=== PATIENT | female | born 1960 | race Caucasian/White ===

== ENCOUNTER 2016-07-10 09:46 | Emergency (ER) | payer OTHER, MEDICAID ==
[2016-07-10 09:55] VITALS: BMI 20.5
[2016-07-10 09:56] VITALS: TEMP 97.8
--- NOTE | 2016-07-10 09:56 | EDPRACDOC ---
- General Stated Complaint: FALL Time Seen by Provider: 07/10/16 09:53 Information Source: Patient, Human Resources Clerk Exam Limitations: No Limitations - History of Present Illness Onset: COMMUNITY AFFAIRS DIRECTOR HPI: PT FELL OUT OF BED. C/O SEVERE RIGHT THIGH PAIN. PT HAS BOTH HIPS DISARTICULATED. PAIN ALSO RIGHT KNEE. PAIN 10/. NO OTHER COMPLAINTS. PT MEDICATED HERSELF WITH HOME [facility] COMMUNITY AFFAIRS DIRECTOR. Allergies/Adverse Reactions: Allergies azithromycin Allergy (Unknown, Verified 04/21/16 14:33) Unknown/See Comments PATIENTS FAMILY REPORTS ALLERGIC TO AZITHROMYCIN clarithromycin [From Biaxin] Allergy (Unknown, Verified 04/21/16 14:33) Unknown/See Comments PATIENT'S FAMILY REPORTS ALLERGIC TO BIAXIN fexofenadine HCl [From Daisy] Allergy (Unknown, Verified 04/21/16 14:33) Unknown/See Comments PATIENT'S FAMILY REPORT ALLERGIC TO DAISY hydromorphone HCl [From Dilaudid] Allergy (Unknown, Verified 04/21/16 14:33) Unknown/See Comments Patient reports unable to take the pill form of Dilaudid, but can have it administered through an IV or a shot. Patient does not know reaction to medication by mouth, states her body does not do well with it. morphine Allergy (Unknown, Verified 04/21/16 14:33) Unknown/See Comments PATIENT'S ALLERGIC TO MORPHINE Penicillins Allergy (Unknown, Verified 04/21/16 14:33) Unknown/See Comments PATIENTS FAMILY REPORTS ALLERGIC TO PCN prednisone [Prednisone] Allergy (Unknown, Verified 04/21/16 14:33) Unknown/See Comments PATIENT'S FAMILY REPORTS ALLERGIC TO PREDNISONE Sulfa (Sulfonamide Antibiotics) Allergy (Unknown, Verified 04/21/16 14:33) Unknown/See Comments PATIENT'S FAMILY REPORTS ALLERGIC TO SULFA tolterodine tartrate [From Detrol] Allergy (Unknown, Verified 04/21/16 14:33) Unknown/See Comments PATIENT'S FAMILY REPORTS ALLERGIC TO DETROL tramadol Allergy (Unknown, Verified 04/21/16 14:33) Unknown/See Comments PATIENT'S FAMILY REPORTS ALLERGICE TO TRAMADOL Home Medications: Ambulatory Orders Duloxetine [Cymbalta] 60 mg PO BID 01/26/14 Estradiol [Estrace] 1 mg PO DAILY 01/26/14 Pregabalin [Lyrica] 150 mg PO TID 01/26/14 Multivit-Min/FA/Lycopene/Lut [Centrum Silver Tablet] 1 tab PO HS 07/24/14 Saliva Stimulant Agents Comb.3 [Biotene Moisturizing Mouth] 1 - 2 sprays MM Q2H PRN 07/24/14 Cetirizine HCl [Zyrtec] 10 mg PO DAILY 01/31/15 Ferrous Sulfate [Iron] 325 mg PO HS 08/05/15 Lubiprostone [Amitiza] 24 mcg PO BID 03/09/16 Mirtazapine [Remeron] 15 mg PO HS 03/09/16 Omeprazole 20 mg PO BID 03/09/16 Ondansetron [Zofran Odt] 4 mg PO Q8H PRN 03/09/16 Oxycodone HCl [Oxycodone Immediate Release] 10 mg PO TID 03/09/16 Tizanidine HCl [Zanaflex] 4 mg PO BID PRN 03/09/16 Carvedilol [Coreg] 3.125 mg PO BID 04/21/16 Clonazepam 0.5 mg PO TID 04/21/16 Daptomycin 500 mg IV QHS 04/21/16 Lisinopril [Zestril] 2.5 mg PO DAILY 04/21/16 Oxycodone HCl [Roxicodone] 5 mg PO TID 04/21/16 Potassium Chloride 20 meq PO BID 04/21/16 ED Past Medical History - Patient Medical History Cardiac History: Reports: Hypertension, Hypercholesterolemia Respiratory History: Reports: COPD GI/ History: Denies: Urinary Tract Infection Psychological History: Reports: Depression, Anxiety Systemic History: Reports: Diabetes (BORDERLINE) Additional Past Medical History: Chronic Pain. RECURRENT HIP DISLOCATION Surgical History: Reports: Cholecystectomy, Tonsillectomy/Adnoidectomy - Social Medical History Smoking Status: Heavy tobacco smoker (5 or more cigarettes/day or daily pipe/ cigar) EDM Review of Systems - Review of Systems ROS Negative Except as Marked: Yes All systems reviewed and were negative except as marked - Physical Exam Constitutional: Alert (Awake), Other (APPEARS UNDER THE INFLUENCE OF PAIN MEDS) Oriented to: Time, Person, Place Last recorded Vital Signs: Oxygen Pulse Oxygen Saturation O2 Device Oxygen Flow Rate Fraction of Inspired Oxygen ( FIO2) - HEENT Head: Normal ( normocephalic) Eye Exam: Normal (PERRL, EOMI, Sclera white) Oropharynx: Normal (Pharynx:Moist without exudate,Gums-no swelling) Nose: No Symptoms Reported (septum midline) Neck: Normal (FROM, trachea at midline) - Respiratory/Cardiovascular Respiratory: Normal - CTA (BBS clear to auscultation without adventitious sounds ) Cardiovascular: Normal (RRR without murmur, gallop or rub) - GI Auscultation: Normal (NABS) Palpation: Normal (Soft,No rebound or guarding, non distended) Tenderness: Non tender Santoyo's Sign: Negative - Musculoskeletal Back: Normal (Non-Tender) Extremities: Other (B/L FLACCID LE'S. LOOSE AT HIPS. TTP RIGHT KNEE, THIGH. NEURVASC INTACT DISTALLY) - Integumentary Skin: Normal, Warm, Dry Lymphatics: Normal (no adenopathy) - Neurologic Memory Impaired: Normal Motor Function: Normal (Normal tone, Pulses 2+ No cyanosis or edema, FROM) Cranial Nerve: Normal (CN II-X11 intact sensation, strength 5/5) Cerebellar: Normal Mood Description: Normal Perception: Normal - Additional Information KNOWN RIGHT FEMUR FACTURE. PT WAS CONCERNED BONE HAD POKED INTO HIP AND KNEE WAS REALLY BOTHERING HER. Decision Time to Discharge: 11:42 - Departure Yes I personally saw and evaluated the patient. Disposition: Home Condition: Stable Final Diagnosis: Accidental fall, Right thigh pain Contusion of right knee Qualifiers: Encounter type: initial encounter Qualified Code(s): S80.01XA - Contusion of right knee, initial encounter Instructions: RICE: Routine Care for Injuries Education/Counseling Given To: Patient Education/Counseling Given Regarding: Diagnosis Referrals: None,No Provider [Primary Care Provider] - One Week
--- NOTE | 2016-07-10 10:37 | DIRPT ---
CLINICAL DATA: Fall from bed with right lower extremity pain EXAM: RIGHT FEMUR - 2 VIEW COMPARISON: Right hip radiographs from earlier today. FINDINGS: Please note that the AP and lateral views of the right femur interpreted on this report depicted normally at the mid to distal portion of the right femur. No fracture or suspicious focal osseous lesion is seen in the visualized right femur. There is a diffuse mottled appearance of the bones. No dislocation at the right knee. No pathologic soft tissue calcifications. IMPRESSION: No fracture in the mid to distal portion of the right femur depicted on these limited views. Please see the separate concurrent right hip radiograph report for details regarding the proximal right femur fracture. Mottled appearance of the bones, a nonspecific finding most commonly due to osteopenia. Electronically Signed By: Mc Hickey M.D. On: 07/10/2016 10:35
--- NOTE | 2016-07-10 10:38 | DIRPT ---
CLINICAL DATA: Status post fall out of bed last night with a right leg injury and onset of pain. Initial encounter. EXAM: RIGHT HIP (WITH PELVIS) 2-3 VIEWS COMPARISON: Plain films of the right hip 04/21/2016. FINDINGS: Postoperative change of removal of a right total hip arthroplasty is identified as on the prior exam. Proximal diaphyseal fracture of the right femur is again seen. There is some callus formation about the fracture but it demonstrates new mild distraction and displacement. Mild superior subluxation of the greater trochanter is unchanged. The patient is status post resection of the left femoral head and neck, unchanged. IMPRESSION: Proximal diaphysis the fracture of the right femur is again seen and demonstrates mild distraction which is new since the prior study. Status post removal of right arthroplasty. Mild superior subluxation of the right greater trochanter is unchanged. Resection of the left hip, unchanged in appearance. Electronically Signed By: Benito Presley M.D. On: 07/10/2016 10:35
--- NOTE | 2016-07-10 11:12 | DIRPT ---
CLINICAL DATA: The patient fell out of bed yesterday with a right knee injury and pain. Initial encounter. EXAM: RIGHT KNEE - COMPLETE 4+ VIEW COMPARISON: Plain films of the right knee 12/10/2009. FINDINGS: No acute bony or joint abnormality is identified. Bones are somewhat osteopenic. There is a small knee joint effusion. IMPRESSION: No fracture is identified. Small joint effusion. Osteopenia. Electronically Signed By: Benito Presley M.D. On: 07/10/2016 11:10
[2016-07-10 12:17] VITALS: BP 139/78; PULSE 84
== END 2016-07-10 12:16 | disposition home or self-care (01) ==
LOC: ED 09:46
DX: M79.651 Pain in right thigh (principal); S80.01XA Contusion of right knee, initial encounter; W06.XXXA Fall from bed, initial encounter; F17.200 Nicotine dependence, unspecified, uncomplicated
CPT/HCPCS: 73502; 99283